=== PATIENT | female | born 1950 | race Caucasian/White ===

== ENCOUNTER 2020-01-19 09:10 | Outpatient (CLI) | payer MEDICARE, SELFPAY ==
--- NOTE | ~2020-01-19 | MM_ITS ---
EXAMINATION: MM screening nereida BI w steph HISTORY: Screening mammogram TECHNIQUE: Craniocaudal and mediolateral oblique 3-D tomosynthesis images were obtained and synthetic 2-D images were generated. CAD analysis was submitted and interpreted. COMPARISON: 01/11/2019, 10/26/2017, 10/23/2016 bilateral digital screening mammogram examinations BREAST PARENCHYMAL COMPOSITION: The breasts are heterogeneously dense, which may obscure small masses . FINDINGS: There are scattered benign calcifications. There is no evidence of suspicious mass, calcifi cation, or architectural distortion to suggest malignancy in either breast. There has been no suspici ous interval change. IMPRESSION: 1. No mammographic evidence of malignancy. 2. Recommend routine screening mammography in one year. BI-RADS Category 2: Benign finding(s). Reviewed, dictated and finalized at location A. 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
== END 2020-01-19 09:11 | disposition home or self-care (01) ==
PROVIDERS: PCP Emergency Medicine; Visit Provider Emergency Medicine
DX: Z12.31 Encounter for screening mammogram for malignant neoplasm of breast (principal)
CPT/HCPCS: 77063; 77067

== ENCOUNTER 2021-11-26 11:53 | Emergency (ER) | payer MEDICARE, SELFPAY ==
[2021-11-26] VITALS (7 sets, daily range): BP systolic 117–162; BP diastolic 48–68; PULSE 96–105; RESP 12–22; TEMP 36.3; O2SAT 98–100
--- NOTE | ~2021-11-26 | CT_ITS ---
EXAMINATION: CT brain wo con INDICATION: Dizziness COMPARISON: None TECHNIQUE: Standard unenhanced head CT. The dose-length product (DLP) was 605.33 mGy-cm. The mA was a djusted according to patient size. Iterative reconstruction technique was employed. FINDINGS: There is no acute intraparenchymal hemorrhage. No evidence of mass lesion. No evidence of a cute infarction. There is mild periventricular and subcortical hypodensity probably related to small vessel ischemic disease. There is mild prominence of the sulci and ventricles related to cerebral atr ophy. Intracranial calcified cerebral atherosclerosis is noted. There are no extra-axial collections. There is no mass effect or midline shift. Changes in the left globe are likely from ocular lens surg dre. The visualized sinuses and mastoid air cells are well aerated. IMPRESSION: 1. No acute intracranial abnormality. 2. Age related findings. Reviewed, dictated and finalized at location A.
--- NOTE | ~2021-11-26 | XR_ITS ---
EXAMINATION: XR chest 2V DATE: 11/26/2021 12:18 INDICATION: Left arm pain and numbness TECHNIQUE: Frontal and lateral views of the chest are obtained COMPARISON: 12/22/2009 FINDINGS: The lungs are free of acute opacities. No pleural effusion or pneumothorax. The cardiomedia stinal silhouette is normal. There is mild thoracic spondylosis. IMPRESSION: 1. No acute cardiopulmonary abnormality. Reviewed, dictated and finalized at location A.
--- NOTE | 2021-11-26 12:05 | ECG_ITS ---
Measurements Intervals [place] Rate: 97 P: 56 MI: 134 QRS: 38 QRSD: 85 T: 21 QT: 328 QTc: 417 Interpretive Statements SINUS RHYTHM WITH OCCASIONAL SUPRAVENTRICULAR PREMATURE COMPLEXES NONSPECIFIC ST-T WAVE ABNORMALITY NO PREVIOUS ECG AVAILABLE FOR COMPARISON Electronically Signed On 11-27-2021 14:34:42 CDT by Mariposa Casas M.D.
[2021-11-26 12:42] LABS: Prothrombin Time 13.2 Seconds (11.1-14.7)
--- NOTE | 2021-11-26 12:45 | ED.DIZZY ---
HPI - Dizziness General Chief Complaint: Dizziness Stated Complaint: dizzy Time Seen by Provider: 11/26/21 12:26 Source: patient and family Mode of arrival: ambulatory Limitations: no limitations History of Present Illness HPI Narrative: The patient is a 71-year-old female with a history of hypertension and hyperlipidemia presenting to the emergency department for evaluation of dizziness. Patient states that she has been dizzy with onset this morning, approximately 7 AM after she awakened. Patient denies any unilateral weakness or numbness, states that she does feel mildly weak in the bilateral lower extremities behind her knees. She denies recent fall or injury, no difficulty with ambulation. Patient denies headache, vision changes, chest pain. She states that on Thursday she fell asleep in her chair and then awakened on Thursday with left, aching elbow pain which is currently resolved. She denies swelling, rash, deformity of the left elbow. No difficulty with movement. Patient states that she was worried that she may have had a stroke or heart attack, thus decided to seek care in the emergency department. She denies any chest pain currently. She states that she never really experienced any frontal chest pain. She denies cough, shortness of breath. She denies dysuria or hematuria. She denies any recent illnesses or known COVID diagnosis. She denies recent medication changes. She has been compliant with her oral lisinopril. She denies any dizziness with movement or changes with position. She states that she feels mildly unsteady but actually feels improved with ambulation. She denies ear pain or fullness. Related Data Allergies Allergy/AdvReac Type Severity Reaction Status Date / Time No Known Allergies Allergy Verified 11/26/21 13:17 Review of Systems Review of Systems: CONSTITUTIONAL: Denies fever, chills, or sweats. EYES: Denies visual changes, redness, or discharge. ENT: Denies rhinorrhea, congestion, sore throat, or otalgia. CARDIOVASCULAR: Denies chest pain, palpitations, or edema. RESPIRATORY: Denies cough or dyspnea. GASTROINTESTINAL: Denies abdominal pain, nausea, vomiting, or diarrhea. GENITOURINARY: Denies dysuria or hematuria. SKIN: Denies rash or itching. MUSCULOSKELETAL: Denies back pain, joint pain, or myalgia. NEUROLOGIC: Denies headache, numbness, reports feeling mildly weak in the bilateral lower extremities, reports mild dizziness PMFSH Past Medical History Medical History Hyperglycemia Family History Family History Mother Family history of Alzheimer's disease, Onset Age: 67 Social History Social History Smoking status: Never smoker Alcohol intake: current Exam Narrative: GENERAL: Awake, alert, conversant HEAD: Normocephalic, atraumatic. EYES: PERRLA and EOMI. ENT: Nares clear, no rhinorrhea or epistaxis. Mucous membranes moist. NECK: Supple. CHEST: No respiratory distress, breathing even and non labored HEART: Regular rate, sinus rhythm ABDOMEN:Non distended, non tender EXTREMITIES: Normal range of motion. No edema. SKIN: Warm, dry, no rash. NEURO:No focal deficits. Alert and oriented x3. Finger to nose intact bilaterally. EOMs intact without nystagmus. No facial droop/asymmetry noted bilaterally. Grimace intact. Intact sensation in face. Hearing intact bilaterally. Shoulder shrug intact. Strength 5/5 bilateral upper extremities. Strength 5/5 bilateral lower extremities. Reflexes 2+ patellar. Heel to syed intact bilaterally. Ambulatory exam deferred. Course Vital Signs Vital signs: Vital Signs Temperature 36.3 C L 11/26/21 12:02 Pulse Rate 105 H 11/26/21 12:02 Respiratory Rate 18 11/26/21 12:02 Blood Pressure 162/63 H 11/26/21 12:02 Pulse Oximetry 100 11/26/21 12:02 Temperature 36.3 C L
[2021-11-26 12:47] LABS: Basophils Percent Auto 0.4 % (0.2-1.2); Hematocrit 37.9 % (37.0-47.0); Hemoglobin 12.3 g/dL (12.0-15.0); Immature Granulocyte Absolute 0.03 K/mm3 (0.00-0.031); Immature Granulocyte Percent A 1.2 % (0-0.5); Lymphocytes Absolute Auto 0.28 K/mm3 (0.9-3.2); Lymphocytes Percent Auto 10.9 % (18.3-44.2); Mean Corpuscular HGB Conc 32.5 g/dl (32-36); Mean Corpuscular Hemoglobin 28.7 pg (26-34); Mean Corpuscular Volume 88.6 fl (80-100); Mean Platelet Volume 9.1 fl (7.4-10.4); Monocytes Absolute Auto 0.4 K/mm3 (0.1-0.6); Monocytes Percent Auto 14.1 % (2.6-8.5); Neutrophils Absolute Auto 1.9 K/mm3 (1.3-6.7); Neutrophils Percent Auto 73.4 % (45.5-73.1); Platelet Count Result 148 k/mm3 (150-375); Red Blood Count 4.28 M/mm3 (4.2-5.4); Red Cell Distribution Width 13.8 % (11.5-14.5); White Blood Count 2.6 K/mm3 (4.5-10.0)
[2021-11-26 12:48] LABS: Alanine Aminotransferase 35 U/L (6-35); Albumin Level 4.5 g/dL (3.5-5.1); Alkaline Phosphatase 83 U/L (38-126); Anion Gap 13 mmol/L (8-16); Aspartate Amino Transferase 39 U/L (14-36); Bilirubin,Total 0.6 mg/dL (0.2-1.3); Blood Urea Nitrogen 17 mg/dL (7-17); Calcium 9.7 mg/dL (8.4-10.2); Carbon Dioxide 27 mmol/L (22-30); Chloride 94 mmol/L (98-107); Estimated CRCL calculation 47 ml/min; Estimated Glomerular Filt Rate > 60; Glucose 133 mg/dL (65-110); Lipase 115 U/L (23-300); Potassium 4.9 mmol/L (3.4-5.0); Sodium 134 mmol/L (137-145)
[2021-11-26 12:58] LABS: Troponin I < 0.012 ng/mL (0.000-0.034)
[2021-11-26 13:18] LABS: Add Urine Microscopic? YES; Appearance Urine Clear (Clear); Bacteria Urine Trace /hpf; Bilirubin Urine Negative (Negative); Blood Urine Negative (Negative); Color Urine Yellow (Yellow); Glucose Urine UA Negative (Negative); Ketones Urine Trace mg/dL (Negative); Leukocyte Esterase Ur Negative LEU/UL (Negative); Mucus Urine Rare /lpf; Nitrate Urine Negative (Negative); Protein Urine Negative (Negative); RBC Urine 0-2 /hpf (0-2); Specific Grav Ur 1.014 (1.001-1.035); Squamous Epithelial Cell Urine Rare /hpf (Few); Urobilinogen Urine Negative mg/dL (<2.0); WBC Urine 0-3 /hpf
[2021-11-26 13:53] LABS: SARS-CoV-2 RNA PCR Negative
== END 2021-11-26 15:02 | disposition home or self-care (01) ==
PROVIDERS: Emergency Provider Emergency Medicine; PCP Physician Assistant
DX: R42 Dizziness and giddiness (principal); Z20.822 Contact with and (suspected) exposure to COVID-19; I10 Essential (primary) hypertension; E78.5 Hyperlipidemia, unspecified; I49.1 Atrial premature depolarization; R94.31 Abnormal electrocardiogram [ECG] [EKG]
CPT/HCPCS: 36415; 70450; 71046; 80053; 81001; 83690; 84443; 84484; 85025; 85610; 85730; 93005; 99284; C9803; U0003; U0005

== ENCOUNTER 2024-01-27 09:31 | Outpatient (CLI) | payer MEDICARE, SELFPAY ==
--- NOTE | ~2024-01-27 | XR_ITS ---
3 VIEWS THORACIC SPINE Ordering provider: Rickie Gambino MD History: . Age-related osteoporosis with current pathological fracture, . Comparison: None. FINDINGS: VERTEBRAL BODIES: Kyphosis is noted with compression fractures seen to vertebrae in the upper thoraci c area and one in the lower thoracic area which may be acute or chronic. MRI evaluation advised. Othe rwise, Normal height and alignment. Levoscoliosis. Degenerative changes of the spine. DISK SPACES: Narrowing of the disc space at multiple levels in the upper and lower thoracic area. SOFT TISSUES: Normal. Emphysematous changes of the lungs. Multiple old rib fractures bilaterally. IMPRESSION: Multilevel compression fractures. MRI evaluation is advised. Reviewed, dictated and finalized at location A. 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
== END 2024-01-27 09:32 | disposition home or self-care (01) ==
LOC: MICIMG 09:34
PROVIDERS: Visit Provider Pain Medicine Pain Medicine
DX: M80.08XA Age-related osteoporosis with current pathological fracture, vertebra(e), initial encounter for fracture (principal); S22.000A Wedge compression fracture of unspecified thoracic vertebra, initial encounter for closed fracture; X58.XXXA Exposure to other specified factors, initial encounter
CPT/HCPCS: 72070

== ENCOUNTER 2024-03-03 10:23 | Outpatient (CLI) | payer MEDICARE, SELFPAY ==
--- NOTE | ~2024-03-03 | MR_ITS ---
EXAMINATION: MR thoracic spine wo con DATE: 03/03/2024 11:38 INDICATION: Mid back pain. TECHNIQUE: Magnetic resonance imaging (MRI) of the thoracic spine was performed without intravenous c ontrast. COMPARISON: Thoracic spine radiographs 01/27/2024, chest 2 views 11/26/2021 FINDINGS: There is kyphosis and 28 degrees levoscoliosis of thoracic spine. There is a chronic burst fracture of T5 with 3/5 loss of height. There is a burst fracture of T6 with 3/5 loss of height, teressa a-like marrow signal intensity, and retropulsion of bone 2 mm into central spinal canal. There is a c hronic burst fracture of T11 with 4/5 loss of height centrally. There is mildly decreased disc height at T7-T8, and T11-T12. There is severe cervical spondylosis. At T5-T6, there is a right central prot rusion with mild central canal stenosis and ventral indentation of the spinal cord. At T7-T8, there i s a left central protrusion with mild central canal stenosis. At T8-T9, there is a central extrusion with mild central canal stenosis. At T9-T10, there is a left central protrusion with mild central can al stenosis. At T10-T11, the disc is bulging with mild central canal stenosis. At T11-T12, there is a right central extrusion with mild central canal stenosis and ventral indentation of the spinal cord. At T12-L1, there is a right central extrusion with mild central canal stenosis. There is multilevel facet joint osteoarthritis, severe at many levels. There is multilevel mild neural foraminal stenosis on either side. On the right, there is moderate neural foraminal stenosis at T5-T6. The spinal cord signal intensity is normal. The conus medullaris is at T12. IMPRESSION: 1. Subacute T6 burst fracture, stable from 01/27/2024. 2. Mild thoracic spondylosis. 3. Thoracic kyphosis and levoscoliosis. Reviewed, dictated and finalized at location A. 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
== END 2024-03-03 10:24 | disposition home or self-care (01) ==
PROVIDERS: PCP Pain Medicine Pain Medicine; Visit Provider Nurse Practitioner Family
DX: S22.051D Stable burst fracture of T5-T6 vertebra, subsequent encounter for fracture with routine healing (principal); X58.XXXD Exposure to other specified factors, subsequent encounter; M47.814 Spondylosis without myelopathy or radiculopathy, thoracic region; M41.84 Other forms of scoliosis, thoracic region; M80.08XS Age-related osteoporosis with current pathological fracture, vertebra(e), sequela
CPT/HCPCS: 72146